=== PATIENT | female | born 1955 | race African-American/Black ===

== ENCOUNTER → 2016-11-20 | Outpatient (CLI) | payer MEDICARE, MEDICAID ==
[~2016-11-20] MED LIST: ALEVE220 M2 PO; AMBIEN10 M1 ORAL; AMBIEN10 MG PO; AMIODARONE HCL400 M1 ORAL; ASPIRIN81 M1 PO; ATENOLOL25 MG ORAL; ATIVAN1 MG ORAL; ATIVAN1 MG PO; AZITHROMYCIN250 MG PO; BACTRIM DS TAB1 EAC1 ORAL; BENTYL10 MG ORAL; BREO ELLIPTA 21 EACH IH; CAL MAG ZINC +1 EACH PO; CARAFATE1 G1 ORAL; CARDIZEM CD120 MG ORAL; CARDIZEM90 MG ORAL; CARTIA XT120 MG ORAL; CARTIA XT240 MG ORAL; CELLCEPT500 MG ORAL; CENTRUM COMPLE1 EAC1 PO; CIPRO500 MG PO; CREON DR 24,001 EACH PO; CREON DR 36,001 EACH PO; DALIRESP500 MCG PO; DEXILANT30 MG ORAL; DEXILANT30 MG PO; DEXILANT60 MG ORAL; DEXILANT60 MG PO; DILTIAZEM ER60 M1 ORAL; DIOVAN HCT 1601 EACH ORAL; DIOVAN HCT 1601 EACH PO; DIOVAN HCT 80MG1 TAB ORAL; DIOVAN160 MG ORAL; DOCUSIL100 M1 ORAL; ESCITALOPRAM OX20 MG ORAL; FERROUS SULFAT325 MG ORAL; FUROSEMIDE40 MG ORAL; GABAPENTIN300 MG ORAL; GABAPENTIN600 MG ORAL; HUMALOG100 UNIT/4 SUBQ; HYDROCHLOROTH12.5 MG ORAL; IMITREX50 MG ORAL; IMODIUM2 MG ORAL; IRON325 M2 PO; LEVAQUIN500 MG ORAL; LEXAPRO10 MG ORAL; LEXAPRO20 MG ORAL; LEXAPRO20 MG PO; LEXAPRO5 MG ORAL; LORAZEPAM1 MG ORAL; MAGNESIUM400 M1 PO; MEDROL4 MG ORAL; METHADONE HCL10 MG PO; METHADONE HCL5 MG PO; METOPROLOL SUC100 MG ORAL; MIRTAZAPINE15 MG ORAL; MYCOPHENOLATE500 MG PO; NEURONTIN300 MG ORAL; NORCO 5-325 TA1 EACH ORAL; NORVASC5 MG ORAL; NORVASC5 MG PO; PHENERGAN/CODE120 ML PO; PLAVIX75 MG ORAL; PREDNISONE10 MG ORAL; PREDNISONE10 MG PO; PREDNISONE20 MG ORAL; PROGRAF5 MG PO; PROTONIX40 M2 GT; PROTONIX40 M2 ORAL; REGLAN5 MG ORAL; RESTORIL30 MG ORAL; RESTORIL30 MG PO; RIBAVIRIN200 M1 ORAL; SIMETHICONE80 MG ORAL; SOVALDI400 MG PO; SPIRIVA INHALE1 PUFF INH; SPIRIVA18 MCG INH; SYMBICORT 1601 PUFFS INH; SYMBICORT 16010.2 G1 INH; SYMBICORT2 PUFF1 INH; THEO-DUR200 MG PO; THEOPHYLLINE A300 MG ORAL; TYLENOL325 MG ORAL; UNOBMED; VALGANCICLOVIR450 MG PO; XANAX0.5 MG ORAL; [UNRECOGNIZED DRUG - OTHER]; [UNRECOGNIZED DRUG - OTHER]; [UNRECOGNIZED DRUG - OTHER] PO; [UNRECOGNIZED DRUG - OTHER] PO; [UNRECOGNIZED DRUG - REMARK]; theophylline PO
[2016-11-20 15:47] VITALS: BP 127/86
--- NOTE | 2016-11-26 10:04 | General Progress Note ---
Assessment/Plan Problem List: (1) Hepatitis C ICD Codes: B19.20 - Hepatitis C SNOMED: 16027117 (2) Anemia ICD Codes: D64.9 - Anemia SNOMED: 830152804 (3) Diabetes ICD Codes: E11.9 - Diabetes SNOMED: 26955102 (4) HTN (hypertension) ICD Codes: I10 - HTN (hypertension) SNOMED: 60485309 (5) GERD (gastroesophageal reflux disease) ICD Codes: K21.9 - GERD (gastroesophageal reflux disease) SNOMED: 990833235 Assessment/Plan bentyl ppi breath test for SIBO Subjective ROS Limited/Unobtainable: Yes Allergies: Coded Allergies: PENICILLINS (Verified Allergy, Severe, Rash, 04/02/14) and swelling ASPIRIN (Unverified Allergy, Unknown, 04/02/14) was told it makes her pulmonary infections worse Subjective abd pain Objective General Appearance: alert EENT: normal ENT inspection Neck: supple Cardiovascular: normal rate Respiratory/Chest: decreased breath sounds Abdomen: normal bowel sounds, non tender, soft Extremities: non-tender DRU SCHROEDER Nov 26, 2016 10:04
== END | disposition home or self-care (01) ==
LOC: PAN 14:01
DX: B19.20 Unspecified viral hepatitis C without hepatic coma (principal); D64.9 Anemia, unspecified; E11.9 Type 2 diabetes mellitus without complications; I10 Essential (primary) hypertension; K21.9 Gastro-esophageal reflux disease without esophagitis; Z88.0 Allergy status to penicillin; Z88.6 Allergy status to analgesic agent
CPT/HCPCS: 99211

== ENCOUNTER → 2016-12-12 | Outpatient (CLI) | payer MEDICARE, MEDICAID ==
--- NOTE | 2016-12-12 15:57 | GI Progress Note ---
Assessment/Plan Problems: (1) Irritable bowel syndrome (IBS) ICD Codes: K58.9 - Irritable bowel syndrome without diarrhea SNOMED: 03403955, 23408873 (2) Small intestinal bacterial overgrowth ICD Codes: K63.89 - Other specified diseases of intestine SNOMED: 971880327 (3) Anxiety (4) GERD (gastroesophageal reflux disease) ICD Codes: K21.9 - GERD (gastroesophageal reflux disease) SNOMED: 729279760 (5) Diabetes ICD Codes: E11.9 - Diabetes SNOMED: 66605766 (6) Anemia ICD Codes: D64.9 - Anemia SNOMED: 517671563 (7) Epigastric abdominal pain ICD Codes: R10.13 - Epigastric abdominal pain SNOMED: 23208011 Status: stable Status Narrative Seen with Dr. Calloway. Assessment/Plan breath test positive for SIBO >> rx Xifaxan cont reglan cont dexilant RTC x 1 month Subjective Subjective epigastric pain/tenderness abdominal bloating min relief from dexilant Objective T 98.1 BP 132/84 P 66 93 RA denies weight loss General Appearance: no apparent distress, alert Cardiovascular: normal rate Respiratory/Chest: normal breath sounds, no respiratory distress Abdominal Exam: normal bowel sounds, non tender, soft, other - abdominal bloating Extremities: normal range of motion Objective Breath test positive Prograf increased to 7mg Vilma Stearns N.P. Dec 12, 2016 15:57
[2016-12-12 16:30] VITALS: BP 132/84
== END | disposition home or self-care (01) ==
LOC: PAN 14:51
DX: K58.9 Irritable bowel syndrome, unspecified (principal); K63.89 Other specified diseases of intestine; K21.9 Gastro-esophageal reflux disease without esophagitis; E11.9 Type 2 diabetes mellitus without complications; D64.9 Anemia, unspecified; R10.13 Epigastric pain
CPT/HCPCS: 99211

== ENCOUNTER → 2017-01-15 | Outpatient (CLI) | payer MEDICARE, MEDICAID ==
--- NOTE | 2017-01-15 13:14 | GI Progress Note ---
Assessment/Plan Problems: (1) Hepatitis C ICD Codes: B19.20 - Hepatitis C SNOMED: 55535744 (2) Small intestinal bacterial overgrowth ICD Codes: K63.89 - Other specified diseases of intestine SNOMED: 224312610 (3) GERD (gastroesophageal reflux disease) ICD Codes: K21.9 - GERD (gastroesophageal reflux disease) SNOMED: 008768109 (4) Epigastric abdominal pain ICD Codes: R10.13 - Epigastric abdominal pain SNOMED: 20644432 (5) Anemia ICD Codes: D64.9 - Anemia SNOMED: 258740977 Status: stable Status Narrative Seen with Dr. Calloway. Assessment/Plan breath test positive for SIBO >> rx Xifaxan refill Bentyl cont Dexilant cont reglan rx Nystatin for oral thrush recommend Align RTC x 1 month/prn (patient will contact) repeat colon x 1 year Subjective Subjective abdominal bloating greatly improved GERD >> on dexilant request refill for Bentyl c/o of oral thrush Objective T 98.3 BP 114/77 P 65 94 RA Weight (Pounds): 152 General Appearance: no apparent distress, alert Cardiovascular: normal rate Respiratory/Chest: normal breath sounds, no respiratory distress Abdominal Exam: normal bowel sounds, non tender, soft Extremities: normal range of motion Objective s/p SIBO tx Endoscopy Procedure Note Indication for Procedure: screening Procedures Performed: colonoscopy Operative Findings/Diagnosis: 5 polyps DRU CALLOWAY- Sep 29, 2015 10:09 Vilma Stearns N.P. Jan 15, 2017 13:14
[2017-01-15 13:53] VITALS: BP 114/77
== END | disposition home or self-care (01) ==
LOC: PAN 12:56
DX: B19.20 Unspecified viral hepatitis C without hepatic coma (principal); K63.89 Other specified diseases of intestine; K21.9 Gastro-esophageal reflux disease without esophagitis; R10.13 Epigastric pain; D64.9 Anemia, unspecified
CPT/HCPCS: 99211

== ENCOUNTER 2018-08-03 13:16 | Outpatient (CLI) | payer MEDICARE, MEDICAID ==
--- NOTE | 2018-08-03 13:57 | GI Initial Consult Note ---
History of Present Illness General Date patient seen: Aug 03, 2018 Time patient seen: 13:52 Referring physician: MISSY MILLS Reason for Consultation: SEVERE DIARRHEA Present Illness HPI The patient is a pleasant 60-year-old female with past medical history significant for Hep C, COPD on home oxygen therapy with multiple hospitalizations due to acute COPD exacerbations, abdominal pain, history of HTN , DM, dionna esophagitis, anxiety, depression, hypertension who presents to clinic with c/o of severe diarrhea. Associated symptoms include; LLQ abdomainl pain for approximately 2 weeks, abdominal bloating, and severe diarrhea. Pt has a history of GERD, currently taking Dexilant 60mg + Zantac twice daily. Her last colonoscopy was performed in 2014 and was noted with colonic polyps. Home Meds Reported Medications Ranitidine Hcl* (ZANTAC*) 150 Mg Tablet, 150 MG ORAL TWICE A DAY, TAB 08/03/18 Prednisone* (PREDNISONE*) 2.5 Mg Tablet, 7.5 MG ORAL DAILY, #10 TAB 0 Refills 08/03/18 Metoprolol Succinate* (METOPROLOL SUCCINATE*) 100 Mg Tab.er.24h, 100 MG ORAL DAILY, TAB 11/20/16 Multivitamin/Iron/Folic Acid (CENTRUM COMPLETE MULTIVIT TAB) 1 Each Tablet, 1 EACH PO DAILY, TAB 11/20/16 Magnesium Oxide (MAGNESIUM) 400 Mg Capsule, 400 MG PO BID, CAP 11/20/16 Ca Carb/Vit D3/Mag Ox/Zn Oxide (DC MAG ZINC + D TABLET) 1 Each Tablet, 1 EACH PO BID, TAB 11/20/16 Insulin Lispro (HUMALOG) 100 Unit/1 Ml Cartridge, 5 SUBQ BEFORE MEALS, #1 UNITS 0 Refills 10/08/16 Mycophenolate Mofetil (MYCOPHENOLATE MOFETIL) 500 Mg Tablet, 250 MG PO BID, TAB 10/08/16 Tacrolimus (PROGRAF) 5 Mg Capsule, 2 PO BID, CAP 09/11/16 Amlodipine Besylate (Norvasc) 5 Mg Tablet, 10 MG ORAL DAILY, TAB 09/11/16 Escitalopram Oxalate* (LEXAPRO*) 20 Mg Tablet, 20 MG ORAL DAILY, TAB 01/23/16 Zolpidem Tartrate* (AMBIEN*) 10 Mg Tablet, 10 MG ORAL HS PRN for Insomnia, TAB 05/11/15 Dexlansoprazole (Dexilant) 60 Mg Cap., 60 MG ORAL DAILY, CAP 07/20/14 Discontinued Reported Medications Dicyclomine Hcl* (BENTYL*) 10 Mg Capsule, 20 MG ORAL PRN, CAP 11/20/16 Metoclopramide Hcl* (REGLAN*) 5 Mg Tablet, 10 MG ORAL BID, TAB 11/20/16 Valganciclovir HCl (Valganciclovir HCl) 450 Mg Tablet, 450 MG PO DAILY, TAB 11/20/16 Trimethoprim/Sulfamethoxazole 160/800* (BACTRIM DS TABLET*) 1 Each Tablet, 1 TAB ORAL 3XW, TAB 11/20/16 Prednisone* (PREDNISONE*) 10 Mg Tablet, 10 MG ORAL DAILY, #10 TAB 0 Refills 11/20/16 Loperamide HCl (Loperamide) 2 Mg Cap, 2 MG ORAL PRN, #20 CAP 0 Refills 01/23/16 Gabapentin* (GABAPENTIN*) 600 Mg Tablet, 600 MG ORAL TID, TAB 01/23/16 Tiotropium (Spiriva Inhaler) 1 Puff Puffs, 1 PUFF INH ONCE 07/28/12 Med list reviewed/reconciled: Yes Allergies: Coded Allergies: PENICILLINS (Verified Allergy, Severe, Rash, 04/02/14) and swelling ASPIRIN (Unverified Allergy, Unknown, 04/02/14) was told it makes her pulmonary infections worse Patient History History Provided By: Patient, Medical Record [facility] Narrative PAST MEDICAL HISTORY: Significant for: 1. Chronic obstructive pulmonary disease with emphysema. 2. Hypertension. 3. Atrial fibrillation. 4. Gastroesophageal reflux disease. 5. Hepatitis C, status post interferon treatment ending in December of 2014. 6. Aortic insufficiency. 7. Hiatal hernia. 8. Umbilical hernia. 9. Peripheral neuropathy of the right foot. PAST SURGICAL HISTORY: Significant for vaginal hysterectomy. Lung Transplant 2016 Social History: Denies: smoking, alcohol use, drug use, other Review of Systems All Other Systems: negative except mentioned in HPI Physical Exam T 97.7 BP 93/56 P 55 92 RA WT 155 lbs Sp02 EP Interpretation: reviewed, normal General Appearance: well appearing, no apparent distress, alert Head: normocephalic EENT: PERRL/EOMI, normal ENT inspection Neck: supple Respiratory: normal breath sounds, no respiratory distress Cardiovascular: normal rate Gastrointestinal: normal inspection, non tender, soft, normal bowel sounds, non -distended Rectal: deferred Genitourinary: no CVA tenderness Musculoskeletal: normal inspection, back normal Neurologic: normal inspection, alert, oriented x3, responsive Psychiatric: normal inspection, judgement/insight normal, memory normal Skin: normal inspection, normal color, no rash, warm/dry, palpation normal, well hydrated Lymphatic: normal inspection, no adenopathy GI: Plan Problems: (1) Diarrhea (2) Irritable bowel syndrome (IBS) (3) Abdominal distention (4) Abdominal pain (5) GERD (gastroesophageal reflux disease) (6) Epigastric abdominal pain Plan Colonoscopy scheduled 10/23/2018. - CLD & (Nulytely/Suprep/Movi-Prep) prep instructions given and acknowledged by patient. - NPO @ MN day prior procedure explained. Rx Xifaxan for SIBO Trial Viberzi RTC x1 month The patient was seen and examined at bedside and all new and available data was reviewed in the patients chart. I agree with the above findings, impression and plan. (Patient seen earlier today. Signature stamp does not reflect patient encounter time.). - MD Jinny DasilvaTucson Va Medical CenterSantiago UTILITY LOCATOR Aug 03, 2018 13:57
[2018-08-03] MEDS ORDERED: PREDNISONE2.5 MG ORAL (13:59)
[2018-08-03] MEDS ORDERED: ZANTAC150 MG ORAL (13:59)
[2018-08-03 14:00] VITALS: BP 93/56
== END 2018-08-03 13:46 | disposition home or self-care (01) ==
LOC: PAN 13:16
DX: K58.0 Irritable bowel syndrome with diarrhea (principal); R14.0 Abdominal distension (gaseous); R10.32 Left lower quadrant pain; K21.9 Gastro-esophageal reflux disease without esophagitis; J44.1 Chronic obstructive pulmonary disease with (acute) exacerbation; I10 Essential (primary) hypertension; E11.9 Type 2 diabetes mellitus without complications; B37.81 Candidal esophagitis; F41.9 Anxiety disorder, unspecified; F32.9 Major depressive disorder, single episode, unspecified; K63.5 Polyp of colon; I48.91 Unspecified atrial fibrillation; B19.20 Unspecified viral hepatitis C without hepatic coma; G62.9 Polyneuropathy, unspecified; Z88.6 Allergy status to analgesic agent; Z88.0 Allergy status to penicillin
CPT/HCPCS: 99213

== ENCOUNTER 2018-10-23 10:04 | Day surgery (SDC) | payer MEDICARE, MEDICAID ==
[2018-10-23] VITALS (8 sets, daily range): BP systolic 136–145; BP diastolic 87–110
[~2018-10-23] VITALS: Ht 157.5 cm; Wt 70.3 kg
[~2018-10-23 10:04] MED LIST changes: +PREDNISONE2.5 MG ORAL; +ZANTAC150 MG ORAL
--- NOTE | 2018-10-23 12:37 | Pre-Procedure Note/Attestation ---
Pre-Procedure Note/Attestation Complete Prior to Procedure Planned Procedure: not applicable Procedure Narrative: esophagogastroduodenoscopy and colonoscopy Indications for Procedure Pre-Operative Diagnosis: screening colonoscopy h/o colon polyps GERD Attestation I attest that I discussed the nature of the procedure; its benefits; risks and complications; and alternatives (and the risks and benefits of such alternatives ), prior to the procedure, with the patient (or the patient's legal data entry representative). I attest that, if there was a reasonable possibility of needing a blood transfusion, the patient (or the patient's legal data entry representative) was given the [facility] Health Services standardized written summary, pursuant to the Sh[place] Blood Safety Act ([place] Health and Safety Code # 1645, as amended). I attest that I re-evaluated the patient just prior to the surgery and that there has been no change in the patient's H&P, except as documented below: Pelon Calloway MD Oct 23, 2018 12:37
--- NOTE | 2018-10-23 12:37 | Short Stay Surgery H&P ---
History of Present Illness History of Present Illness Chief Complaint see recent office note HPI Lydia Gee is a 63 year old female who was admitted on for Gerd,Abdominal Pain Patient History Allergies: Coded Allergies: PENICILLINS (Verified Allergy, Severe, Rash, 04/02/14) and swelling ASPIRIN (Unverified Allergy, Unknown, 04/02/14) was told it makes her pulmonary infections worse Medication History Scheduled Amlodipine Besylate (Norvasc), 10 MG ORAL DAILY, (Reported) Ca Carb/Vit D3/Mag Ox/Zn Oxide (Gustavo Mag Zinc + D Tablet), 1 EACH PO BID, ( Reported) Dexlansoprazole (Dexilant), 60 MG ORAL DAILY, (Reported) Escitalopram Oxalate* (Lexapro*), 20 MG ORAL DAILY, (Reported) Magnesium Oxide (Magnesium), 400 MG PO BID, (Reported) Metoprolol Succinate* (Metoprolol Succinate*), 100 MG ORAL DAILY, (Reported) Multivitamin/Iron/Folic Acid (Centrum Complete Multivit Tab), 1 EACH PO DAILY, ( Reported) Prednisone* (Prednisone*), 7.5 MG ORAL DAILY, (Reported) Ranitidine Hcl* (Zantac*), 150 MG ORAL TWICE A DAY, (Reported) Tacrolimus (Prograf), 2 PO BID, (Reported) Discontinued Medications Insulin Lispro (Humalog), 5 SUBQ BEFORE MEALS, (Reported) Discontinued Reason: Pt stopped taking med Mycophenolate Mofetil (Mycophenolate Mofetil), 250 MG PO BID, (Reported) Discontinued Reason: Pt stopped taking med Zolpidem Tartrate* (Ambien*), 10 MG ORAL HS PRN for Insomnia, (Reported) Discontinued Reason: Pt stopped taking med Physical Exam Vital Signs Last Vital Signs Date Time Temp Pulse Resp B/P (MAP) Pulse Ox O2 Delivery O2 Flow Rate FiO2 10/23/18 11:41 Room Air 10/23/18 11:37 97.7 85 18 141/98 98 Plan Attestation Are the patient's medical conditions optimized for surgery? Pelon Calloway MD Oct 23, 2018 12:37
[2018-10-23] MEDS ORDERED: Propofol 200mg/20ml IV ONE (12:45)
[2018-10-23] MEDS ORDERED: Esmolol 100mg/10ml Inj ONE (12:45)
[2018-10-23] MEDS ORDERED: Midazolam 2mg/2ml Inj ONE ×2 (12:45→12:47)
[2018-10-23] MEDS ORDERED: Ketamine 500mg Inj ONE ×2 (12:45→12:48)
[2018-10-23 12:54] LABS: BASOPHILS % (AUTO) 2.8 % (0.0-2.0); EOSINOPHILS % (AUTO) 1.3 % (0.0-3.0); HEMATOCRIT 43.4 % (37.0-47.0); HEMOGLOBIN 13.5 G/DL (12.0-16.0); LYMPHOCYTES % (AUTO) 22.5 % (20.0-45.0); MEAN CORPUSCULAR VOLUME 87 FL (80-99); MONOCYTES % (AUTO) 7.7 % (1.0-10.0); NEUTROPHILS % (AUTO) 65.7 % (45.0-75.0); PLATELET COUNT 196 K/UL (150-450); RED BLOOD COUNT 4.97 M/UL (4.20-5.40); RED CELL DISTRIBUTION WIDTH 13.6 % (11.6-14.8); WHITE BLOOD COUNT 6.3 K/UL (4.8-10.8)
[2018-10-23 13:06] LABS: ANION GAP 10 mmol/L (5-15); BLOOD UREA NITROGEN 23 mg/dL (7-18); CALCIUM 10.3 MG/DL (8.5-10.1); CARBON DIOXIDE 28 MMOL/L (21-32); CHLORIDE 105 MMOL/L (98-107); CREATININE 1.4 MG/DL (0.55-1.30); POTASSIUM 4.4 MMOL/L (3.5-5.1); SODIUM 143 MMOL/L (136-145)
[2018-10-23 13:08] LABS: INR 1.1 (0.9-1.1)
--- NOTE | 2018-10-23 13:53 | Anethesia Preoperative Eval ---
Anesthesia Pre-op PMH/ROS General Date of Evaluation: Oct 23, 2018 Time of Evaluation: 12:45 Anesthesiologist: Gretel Catherine CRNA ASA Score: ASA 4 Mallampati Score Class I : Soft palate, uvula, fauces, pillars visible Class II: Soft palate, uvula, fauces visible Class III: Soft palate, base of uvula visible Class IV: Only hard plate visible Mallampati Classification: Class II Surgeon: Brodie Diagnosis: GERD, abd pain Surgical Procedure: EGD, colonoscopy Anesthesia History: none Social History: smoking Family History: no anesthesia problems Allergies: Coded Allergies: PENICILLINS (Verified Allergy, Severe, Rash, 04/02/14) and swelling ASPIRIN (Unverified Allergy, Unknown, 04/02/14) was told it makes her pulmonary infections worse Medications: see eMAR Patient NPO?: Yes NPO Date: Oct 23, 2018 NPO Time: 00:00 Past Medical History Cardiovascular: Reports: HTN, CAD, valve dz; Denies: [place], arrhythmia, other Pulmonary: Reports: COPD, other - s/p lung transplant; Denies: asthma, AMBER Gastrointestinal/Genitourinary: Reports: GERD, other; Denies: CRI, ESRD Neurologic/Psychiatric: Denies: dementia, CVA, depression/anxiety, TIA, other Endocrine: Reports: DM, steroids; Denies: hypothyroidism, other HEENT: Denies: cataract (L), cataract (R), glaucoma, KNIK (L), KNIK (R), other Hematology/Immune: Denies: anemia, DVT, bleeding disorder, other Musculoskeletal/Integumentary: Denies: OA, RA, DJD, DDD, edema, other Other: obesity PMH Narrative: see above PSxH Narrative: see H & P Anesthesia Pre-op Phys. Exam Physician Exam Last Vital Signs Date Time Temp Pulse Resp B/P (MAP) Pulse Ox O2 Delivery O2 Flow Rate FiO2 10/23/18 13:40 91 16 140/107 100 Nasal Cannula 3 10/23/18 13:36 98.9 Cardiovascular: RRR Respiratory: CTA Gastrointestinal: S/NT/ND Airway Exam Mallampati Score: Class II MO: full ROM: full Teeth: intact Dentures: no upper, no lower Anesthesia Pre-op A/P Labs Hematology Test 10/23/18 12:35 White Blood Count 6.3 K/UL (4.8-10.8) Red Blood Count 4.97 M/UL (4.20-5.40) Hemoglobin 13.5 G/DL (12.0-16.0) Hematocrit 43.4 % (37.0-47.0) Mean Corpuscular Volume 87 FL (80-99) Mean Corpuscular Hemoglobin 27.2 PG (27.0-31.0) Mean Corpuscular Hemoglobin Concent 31.2 G/DL (32.0-36.0) L Red Cell Distribution Width 13.6 % (11.6-14.8) Platelet Count 196 K/UL (150-450) Mean Platelet Volume 8.4 FL (6.5-10.1) Neutrophils (%) (Auto) 65.7 % (45.0-75.0) Lymphocytes (%) (Auto) 22.5 % (20.0-45.0) Monocytes (%) (Auto) 7.7 % (1.0-10.0) Eosinophils (%) (Auto) 1.3 % (0.0-3.0) Basophils (%) (Auto) 2.8 % (0.0-2.0) H Coagulation Test 10/23/18 12:35 Prothrombin Time Pending Prothromb Time International Ratio Pending Activated Partial Thromboplast Time Pending Chemistry Test 10/23/18 12:35 Sodium Level 143 MMOL/L (136-145) Potassium Level 4.4 MMOL/L (3.5-5.1) Chloride Level 105 MMOL/L (98-107) Carbon Dioxide Level 28 MMOL/L (21-32) Anion Gap 10 mmol/L (5-15) Blood Urea Nitrogen 23 mg/dL (7-18) H Creatinine 1.4 MG/DL (0.55-1.30) H Estimat Glomerular Filtration Rate 45.8 mL/min (>60) Glucose Level 145 MG/DL (74-106) H Calcium Level 10.3 MG/DL (8.5-10.1) H Studies Pre-op Studies: EKG - NSR Risk Assessment & Plan Status Change Before Surgery: No Pre-Antibiotics Given Within 1 Hr of Incision: Gretel Carey CRNA Oct 23, 2018 13:53
--- NOTE | 2018-10-23 13:55 | Immediate Post-Op Evaluation ---
Immediate Post-Op Evalulation Immediate Post-Op Evalulation Procedure: EGD, colonoscopy, polypectomy Date of Evaluation: Oct 23, 2018 Time of Evaluation: 13:36 IV Fluids: 0.9 NS 50 ml Blood Pressure Systolic: 145 Blood Pressure Diastolic: 110 Pulse Rate: 87 Respiratory Rate: 24 O2 Sat by Pulse Oximetry: 100 Temperature (Fahrenheit): 98.2 Pain Score (1-10): 0 Nausea: No Vomiting: No Complications none Patient Status: awake, reacts Hydration Status: adequate Given Within 1 Hr of Incision: Gretel Carey CRNA Oct 23, 2018 13:55
--- NOTE | 2018-10-23 15:08 | 48 Hour Post Anesthesia Eval ---
Post Anesthesia Evaluation Procedure: EGD, colonoscopy, polypectomy Date of Evaluation: Oct 23, 2018 Time of Evaluation: 15:06 Blood Pressure Systolic: 144 0: 89 Pulse Rate: 78 Respiratory Rate: 20 Temperature (Fahrenheit): 98.4 O2 Sat by Pulse Oximetry: 100 Airway: patent Nausea: No Vomiting: No Pain Intensity: 0 Hydration Status: adequate Cardiopulmonary Status: stable Mental Status/LOC: patient returned to baseline Follow-up Care/Observations: per GI Post-Anesthesia Complications: none Follow-up care needed: ready to discharge Gretel Catherine CRNA Oct 23, 2018 15:08
--- NOTE | 2018-10-23 15:52 | Cardiology Report ---
APPROVED REPORT EKG Measurement Heart [id number] PA 134P68 [id number] Normal sinus rhythm T wave abnormality, consider inferior ischemia T wave abnormality, consider anterolateral ischemia Abnormal ECG
--- NOTE | 2018-10-23 20:45 | Procedure Note ---
DATE OF PROCEDURE: 10/23/2018 NOTE: INCOMPLETE DICTATION SURGEON: Pelon Calloway M.D. ANESTHESIOLOGIST: Gretel WALKER. PROCEDURE: Upper endoscopy with brush biopsy and colonoscopy with biopsy. ANESTHESIA: Per Gretel WALKER. INSTRUMENT: Olympus adult flexible upper endoscope and colonoscope. The procedure, risks, benefits, and possible consequences, including hemorrhage, aspiration, perforation and infection, and alternative treatments, were explained to the patient/legal guardian by Dr. Pelon Calloway and the patient/legal guardian understood and accepted these risks. DESCRIPTION OF PROCEDURE: Pelon Calloway M.D. DR: Prudence JOB#: [id number] CC:
--- NOTE | 2018-10-23 21:00 | Procedure Note ---
DATE OF PROCEDURE: 10/23/2018 SURGEON: Pelon Calloway M.D. ANESTHESIOLOGIST: Gretel WALKER. PROCEDURE: Upper endoscopy with brush biopsy and colonoscopy with biopsy. INSTRUMENT: Olympus adult flexible colonoscope and upper scope. INDICATION: History of colonic polyp, chronic GERD, and abdominal pain. The procedure, risks, benefits, and possible consequences, including hemorrhage, aspiration, perforation and infection, and alternative treatments, were explained to the patient/legal guardian by Dr. Pelon Calloway and the patient/legal guardian understood and accepted these risks. DESCRIPTION OF PROCEDURE: After informed consent was obtained and the patient was adequately sedated, Olympus upper endoscope was advanced from the mouth into the second portion of duodenum and retroflexion was performed in the stomach. The patient has diffuse severe Yuliet esophagitis with severe white plaques especially in the proximal esophagus, status post brush biopsy. In the stomach, there was diffuse gastritis. No evidence of any ulceration. No evidence of any active bleeding. The patient also had evidence of a small hiatal hernia. At this time, the upper endoscope was retrieved. The patient was turned over for colonoscopy. First, rectal exam was performed which was positive for internal hemorrhoids. Then, the scope was advanced from the rectum into the cecum documented by the appendix orifice, ileocecal valve, and right upper quadrant palpation. Quality of prep was fair. The patient had semi-solid stool throughout the colon. I would say about 25% to 30% of the colonic mucosa was not fully examined. The patient had some scattered diverticulosis. One rectal polyp, 4 mm, was removed with cold biopsy forceps technique. Retroflexion in the rectum showed evidence of small nonbleeding internal hemorrhoids. SUMMARY OF FINDINGS: 1. Possible Yuliet esophagitis. 2. Gastritis. 3. Small hiatal hernia. 4. Diverticulosis. 5. Poor prep. 6. One rectal polyp, removed. 7. Internal hemorrhoids. RECOMMENDATIONS: Follow up biopsy results and treat accordingly. We will start the patient on Diflucan for 10 days. The patient would need a repeat colonoscopy in three years given this poor prep. Pelon Calloway M.D. DR: Prudence JOB#: [id number] CC:
== END 2018-10-23 14:45 | disposition home or self-care (01) ==
LOC: GAS 10:04
DX: K29.70 Gastritis, unspecified, without bleeding (principal); K44.9 Diaphragmatic hernia without obstruction or gangrene; B37.81 Candidal esophagitis; K21.9 Gastro-esophageal reflux disease without esophagitis; K62.1 Rectal polyp; K64.8 Other hemorrhoids; K57.30 Diverticulosis of large intestine without perforation or abscess without bleeding; I10 Essential (primary) hypertension; I25.10 Atherosclerotic heart disease of native coronary artery without angina pectoris; J44.9 Chronic obstructive pulmonary disease, unspecified; E11.9 Type 2 diabetes mellitus without complications; Z94.2 Lung transplant status; Z79.4 Long term (current) use of insulin; Z88.6 Allergy status to analgesic agent; Z88.0 Allergy status to penicillin
CPT/HCPCS: 36415; 43239; 45380; 80048; 85025; 85610; 85730; 93005; J2250; J2704; J3490; 94003; 94150

== ENCOUNTER 2018-12-03 14:25 | Outpatient (CLI) | payer MEDICARE, MEDICAID ==
[2018-12-03 14:00] VITALS: BP 121/85
--- NOTE | 2018-12-03 15:44 | GI Progress Note ---
Assessment/Plan Problems: (1) History of lung transplant ICD Codes: Z94.2 - Lung transplant status SNOMED: 94992703, 386591190 (2) Esophageal candidiasis ICD Codes: B37.81 - Candidal esophagitis SNOMED: 66196250 (3) Epigastric abdominal pain ICD Codes: R10.13 - Epigastric abdominal pain SNOMED: 26695537 Status: stable Status Narrative Seen with Dr. Calloway. Assessment/Plan SUMMARY OF FINDINGS reviewed with patient: 1. Possible Yuliet esophagitis. 2. Gastritis. 3. Small hiatal hernia. 4. Diverticulosis. 5. Poor prep. 6. One rectal polyp, removed. 7. Internal hemorrhoids. RECOMMENDATIONS: Follow up biopsy results and treat accordingly. >> Positive for Yuliet Patient unable to take Diflucan given history of lung transplant We will give trial of nystatin RTC x 1 month The patient would need a repeat colonoscopy in three years given this poor prep. The patient was seen and examined at bedside and all new and available data was reviewed in the patients chart. I agree with the above findings, impression and plan. (Patient seen earlier today. Signature stamp does not reflect patient encounter time.). - Pelon Calloway MD Subjective Gastrointestinal/Abdominal: Reports: no symptoms Objective Temperature 98.7 Blood pressure 120/85 Pulse 79 91% room air Denies any weight loss General Appearance: WD/WN, no apparent distress, alert Cardiovascular: normal rate Respiratory/Chest: normal breath sounds, no respiratory distress Abdominal Exam: normal bowel sounds, non tender, soft Extremities: normal range of motion, non-tender Cheryl Stearns NP Dec 03, 2018 15:44
== END 2018-12-03 14:55 | disposition home or self-care (01) ==
LOC: PAN 14:25
DX: B37.81 Candidal esophagitis (principal); R10.13 Epigastric pain; Z94.2 Lung transplant status; K29.70 Gastritis, unspecified, without bleeding; K44.9 Diaphragmatic hernia without obstruction or gangrene; K57.90 Diverticulosis of intestine, part unspecified, without perforation or abscess without bleeding; K64.8 Other hemorrhoids
CPT/HCPCS: 99212

== ENCOUNTER 2019-10-18 13:43 | Outpatient (CLI) | payer MEDICARE, MEDICAID ==
[2019-10-18 14:00] VITALS: BP 107/89
--- NOTE | 2019-10-18 15:19 | General Progress Note ---
Assessment/Plan Assessment/Plan: 1) History of lung transplant ICD Codes: Z94.2 - Lung transplant status SNOMED: 04124659, 727389556 (2) Esophageal candidiasis ICD Codes: B37.81 - Candidal esophagitis SNOMED: 22120617 (3) Epigastric abdominal pain ICD Codes: R10.13 - Epigastric abdominal pain SNOMED: 96940769 Status: stable Status Narrative Seen with Dr. Calloway. Assessment/Plan SUMMARY OF FINDINGS reviewed with patient: 1. Possible Yuliet esophagitis. 2. Gastritis. 3. Small hiatal hernia. 4. Diverticulosis. 5. Poor prep. 6. One rectal polyp, removed. 7. Internal hemorrhoids. RECOMMENDATIONS: needs EGD for fu yuliet esophagitis plan next week Subjective ROS Limited/Unobtainable: Yes Allergies: Coded Allergies: PENICILLINS (Verified Allergy, Severe, Rash, 04/02/14) and swelling ASPIRIN (Unverified Allergy, Unknown, 04/02/14) was told it makes her pulmonary infections worse Objective General Appearance: alert EENT: normal ENT inspection Neck: supple Cardiovascular: normal rate Respiratory/Chest: decreased breath sounds Abdomen: normal bowel sounds, non tender, soft Extremities: non-tender Pelon Calloway MD Oct 18, 2019 15:19
[2019-10-19] MEDS ORDERED: BACLOFEN10 MG ORAL (08:16)
[2019-10-19] MEDS ORDERED: TRULICITY0.75 MG/0. SQ (08:16)
== END 2019-10-18 16:00 | disposition home or self-care (01) ==
LOC: PAN 13:43
DX: R10.13 Epigastric pain (principal); B37.81 Candidal esophagitis; Z94.2 Lung transplant status; Z86.010 Personal history of colon polyps; K57.90 Diverticulosis of intestine, part unspecified, without perforation or abscess without bleeding; K29.70 Gastritis, unspecified, without bleeding; K44.9 Diaphragmatic hernia without obstruction or gangrene; K64.8 Other hemorrhoids; Z88.6 Allergy status to analgesic agent; Z88.0 Allergy status to penicillin

== ENCOUNTER 2019-10-22 07:06 | Day surgery (SDC) | payer MEDICARE, MEDICAID ==
[~2019-10-22] VITALS: Ht 157.5 cm; Wt 73.5 kg
[2019-10-22] VITALS (9 sets, daily range): BP systolic 116–138; BP diastolic 78–99
[~2019-10-22 07:06] MED LIST changes: +BACLOFEN10 MG ORAL; +TRULICITY0.75 MG/0. SQ
[2019-10-22 08:47] LABS: BASOPHILS % (AUTO) 1.4 % (0.0-2.0); EOSINOPHILS % (AUTO) 2.6 % (0.0-3.0); HEMATOCRIT 43.8 % (37.0-47.0); HEMOGLOBIN 13.6 G/DL (12.0-16.0); MEAN CORPUSCULAR VOLUME 88 FL (80-99); MONOCYTES % (AUTO) 9.8 % (1.0-10.0); NEUTROPHILS % (AUTO) 53.3 % (45.0-75.0); PLATELET COUNT 176 K/UL (150-450); RED BLOOD COUNT 4.96 M/UL (4.20-5.40); RED CELL DISTRIBUTION WIDTH 13.3 % (11.6-14.8); WHITE BLOOD COUNT 6.5 K/UL (4.8-10.8)
--- NOTE | 2019-10-22 08:57 | Pre-Procedure Note/Attestation ---
Pre-Procedure Note/Attestation Complete Prior to Procedure Planned Procedure: not applicable Procedure Narrative: egd Indications for Procedure Pre-Operative Diagnosis: GERD Attestation I attest that I discussed the nature of the procedure; its benefits; risks and complications; and alternatives (and the risks and benefits of such alternatives ), prior to the procedure, with the patient (or the patient's legal account services representative). I attest that, if there was a reasonable possibility of needing a blood transfusion, the patient (or the patient's legal account services representative) was given the [facility] Health Services standardized written summary, pursuant to the [place] Blood Safety Act ([place] Health and Safety Code # 1645, as amended). I attest that I re-evaluated the patient just prior to the surgery and that there has been no change in the patient's H&P, except as documented below: Pelon Calloway MD Oct 22, 2019 08:57
--- NOTE | 2019-10-22 08:57 | Short Stay Surgery H&P ---
History of Present Illness History of Present Illness Chief Complaint see recent office note HPI Lydia Gee is a 64 year old female who was admitted on for Abdominal Pain, Gerd Patient History Allergies: Coded Allergies: PENICILLINS (Verified Allergy, Severe, Rash, 04/02/14) and swelling ASPIRIN (Unverified Allergy, Unknown, 04/02/14) was told it makes her pulmonary infections worse Medication History Scheduled Amlodipine Besylate (Norvasc), 10 MG ORAL DAILY, (Reported) Baclofen* (Baclofen*), 10 MG ORAL THREE TIMES A DAY, (Reported) Ca Carb/Vit D3/Mag Ox/Zn Oxide (Gustavo Mag Zinc + D Tablet), 1 EACH PO BID, ( Reported) Dexlansoprazole (Dexilant), 60 MG ORAL DAILY, (Reported) Escitalopram Oxalate* (Lexapro*), 20 MG ORAL DAILY, (Reported) Magnesium Oxide (Magnesium), 400 MG PO BID, (Reported) Prednisone* (Prednisone*), 7.5 MG ORAL DAILY, (Reported) Ranitidine Hcl* (Zantac*), 150 MG ORAL TWICE A DAY, (Reported) Tacrolimus (Prograf), 2 PO BID, (Reported) Discontinued Medications Dulaglutide (Trulicity), 0.75 MG SQ, (Reported) Discontinued Reason: Pt stopped taking med Metoprolol Succinate* (Metoprolol Succinate*), 100 MG ORAL DAILY, (Reported) Discontinued Reason: Pt stopped taking med Multivitamin/Iron/Folic Acid (Centrum Complete Multivit Tab), 1 EACH PO DAILY, ( Reported) Discontinued Reason: Pt stopped taking med Physical Exam Vital Signs Last Vital Signs Date Time Temp Pulse Resp B/P (MAP) Pulse Ox O2 Delivery O2 Flow Rate FiO2 10/22/19 07:53 Room Air 10/22/19 07:39 97.8 88 18 128/85 96 Labs Laboratory Tests Test 10/22/19 08:20 White Blood Count 6.5 K/UL (4.8-10.8) Red Blood Count 4.96 M/UL (4.20-5.40) Hemoglobin 13.6 G/DL (12.0-16.0) Hematocrit 43.8 % (37.0-47.0) Mean Corpuscular Volume 88 FL (80-99) Mean Corpuscular Hemoglobin 27.5 PG (27.0-31.0) Mean Corpuscular Hemoglobin Concent 31.0 G/DL (32.0-36.0) L Red Cell Distribution Width 13.3 % (11.6-14.8) Platelet Count 176 K/UL (150-450) Mean Platelet Volume 7.6 FL (6.5-10.1) Neutrophils (%) (Auto) 53.3 % (45.0-75.0) Lymphocytes (%) (Auto) 33.0 % (20.0-45.0) Monocytes (%) (Auto) 9.8 % (1.0-10.0) Eosinophils (%) (Auto) 2.6 % (0.0-3.0) Basophils (%) (Auto) 1.4 % (0.0-2.0) Sodium Level Pending Potassium Level Pending Chloride Level Pending Carbon Dioxide Level Pending Blood Urea Nitrogen Pending Creatinine Pending Estimat Glomerular Filtration Rate Pending Glucose Level Pending Calcium Level Pending Total Bilirubin Pending Aspartate Amino Transf (AST/SGOT) Pending Alanine Aminotransferase (ALT/SGPT) Pending Alkaline Phosphatase Pending Total Protein Pending Albumin Pending Globulin Pending Plan Attestation Are the patient's medical conditions optimized for surgery? Pelon Calloway MD Oct 22, 2019 08:57
[2019-10-22] MEDS ORDERED: Lidocaine 1% MPF 10mg/ml 5ml ONE (09:00)
[2019-10-22] MEDS ORDERED: Propofol 200mg/20ml IV ONE (09:00)
[2019-10-22] MEDS ORDERED: LR 1000ml ONE (09:00)
[2019-10-22 09:05] LABS: ANION GAP 7 mmol/L (5-15); BLOOD UREA NITROGEN 40 mg/dL (7-18); CALCIUM 9.3 MG/DL (8.5-10.1); CARBON DIOXIDE 30 MMOL/L (21-32); CHLORIDE 102 MMOL/L (98-107); CREATININE 1.9 MG/DL (0.55-1.30); POTASSIUM 4.5 MMOL/L (3.5-5.1); SODIUM 138 MMOL/L (136-145)
[2019-10-22 09:07] LABS: ALANINE AMINOTRANSFERASE 22 U/L (12-78); ALBUMIN 4.1 G/DL (3.4-5.0); ALBUMIN/GLOBULIN RATIO 1.2 (1.0-2.7); ALKALINE PHOSPHATASE 39 U/L (46-116); ASPARTATE AMINO TRANSFERASE 15 U/L (15-37); BILIRUBIN,TOTAL 0.5 MG/DL (0.2-1.0)
--- NOTE | 2019-10-22 09:08 | Endoscopy Procedure Note ---
Endoscopy Procedure Note General Indication for Procedure: GERD Procedures Performed: EGD Operative Findings/Diagnosis: esoph ulcer Specimen: yes Pt Tolerated Procedure Well: Yes Estimated Blood Loss: none Anesthesia Anesthesiologist: meño Anesthesia: MAC Inserted Devices Implant(s) used?: No GI Core Measures 50 yrs or older w/o bx or poly: Not Applicable 10yrs. F/U recommended: Not Applicable Pelon Calloway MD Oct 22, 2019 09:08
--- NOTE | 2019-10-22 09:48 | Anethesia Preoperative Eval ---
Anesthesia Pre-op PMH/ROS General Date of Evaluation: Oct 22, 2019 Time of Evaluation: 08:47 Anesthesiologist: leonila ASA Score: ASA 3 Mallampati Score Class I : Soft palate, uvula, fauces, pillars visible Class II: Soft palate, uvula, fauces visible Class III: Soft palate, base of uvula visible Class IV: Only hard plate visible Mallampati Classification: Class II Surgeon: jose Diagnosis: GERD Surgical Procedure: EGD with Bx Anesthesia History: none Family History: no anesthesia problems Allergies: Coded Allergies: PENICILLINS (Verified Allergy, Severe, Rash, 04/02/14) and swelling ASPIRIN (Unverified Allergy, Unknown, 04/02/14) was told it makes her pulmonary infections worse Medications: see eMAR Patient NPO?: Yes NPO Date: Oct 22, 2019 NPO Time: 00:01 Past Medical History Cardiovascular: Reports: HTN, CAD, arrhythmia, other - CHF Pulmonary: Reports: COPD, other - lung transplant 2 years ago Gastrointestinal/Genitourinary: Reports: GERD Neurologic/Psychiatric: Denies: dementia, CVA, depression/anxiety, TIA, other Endocrine: Denies: DM, hypothyroidism, steroids, other HEENT: Denies: cataract (L), cataract (R), glaucoma, [place] (L), [place] (R), other Hematology/Immune: Denies: anemia, DVT, bleeding disorder, other Musculoskeletal/Integumentary: Denies: OA, RA, DJD, DDD, edema, other Other: obesity PSxH Narrative: lung transplant 2 years ago; takes steriod po; no changes in health Anesthesia Pre-op Phys. Exam Physician Exam Last Vital Signs Date Time Temp Pulse Resp B/P (MAP) Pulse Ox O2 Delivery O2 Flow Rate FiO2 10/22/19 09:40 97.1 66 22 126/79 97 Room Air 10/22/19 09:15 3 Constitutional: NAD Neurologic: CN 2-12 intact Cardiovascular: RRR Respiratory: other - right lungs clear; none on left side Gastrointestinal: S/NT/ND Airway Exam Mallampati Classification 3 Mallampati Score: Class II MO: full ROM: full Dentures: upper Anesthesia Pre-op A/P Labs Hematology Test 10/22/19 08:20 White Blood Count 6.5 K/UL (4.8-10.8) Red Blood Count 4.96 M/UL (4.20-5.40) Hemoglobin 13.6 G/DL (12.0-16.0) Hematocrit 43.8 % (37.0-47.0) Mean Corpuscular Volume 88 FL (80-99) Mean Corpuscular Hemoglobin 27.5 PG (27.0-31.0) Mean Corpuscular Hemoglobin Concent 31.0 G/DL (32.0-36.0) L Red Cell Distribution Width 13.3 % (11.6-14.8) Platelet Count 176 K/UL (150-450) Mean Platelet Volume 7.6 FL (6.5-10.1) Neutrophils (%) (Auto) 53.3 % (45.0-75.0) Lymphocytes (%) (Auto) 33.0 % (20.0-45.0) Monocytes (%) (Auto) 9.8 % (1.0-10.0) Eosinophils (%) (Auto) 2.6 % (0.0-3.0) Basophils (%) (Auto) 1.4 % (0.0-2.0) Chemistry Test 10/22/19 08:20 Sodium Level 138 MMOL/L (136-145) Potassium Level 4.5 MMOL/L (3.5-5.1) Chloride Level 102 MMOL/L (98-107) Carbon Dioxide Level 30 MMOL/L (21-32) Anion Gap 7 mmol/L (5-15) Blood Urea Nitrogen 40 mg/dL (7-18) H Creatinine 1.9 MG/DL (0.55-1.30) H Estimat Glomerular Filtration Rate 32.0 mL/min (>60) Glucose Level 123 MG/DL (74-106) H Calcium Level 9.3 MG/DL (8.5-10.1) Total Bilirubin 0.5 MG/DL (0.2-1.0) Aspartate Amino Transf (AST/SGOT) 15 U/L (15-37) Alanine Aminotransferase (ALT/SGPT) 22 U/L (12-78) Alkaline Phosphatase 39 U/L (46-116) L Total Protein 7.5 G/DL (6.4-8.2) Albumin 4.1 G/DL (3.4-5.0) Globulin 3.4 g/dL Albumin/Globulin Ratio 1.2 (1.0-2.7) Studies Pre-op Studies: EKG - SR Risk Assessment & Plan Assessment: denies changes in health last two weeks Plan: MAC Status Change Before Surgery: No Pre-Antibiotics Drug: none Evelyn Villegas CRNA Oct 22, 2019 09:48
--- NOTE | 2019-10-22 11:21 | Immediate Post-Op Evaluation ---
Immediate Post-Op Evalulation Immediate Post-Op Evalulation Procedure: EGD with Bx Date of Evaluation: Oct 22, 2019 Time of Evaluation: 09:10 IV Fluids: 500 Blood Pressure Systolic: 116 Blood Pressure Diastolic: 84 Pulse Rate: 71 Respiratory Rate: 14 O2 Sat by Pulse Oximetry: 99 Temperature (Fahrenheit): 97.5 Nausea: No Vomiting: No Complications none Patient Status: awake, reacts, patent Hydration Status: adequate Drug: none Evelyn Villegas CRNA Oct 22, 2019 11:21
--- NOTE | 2019-10-22 14:30 | Procedure Note ---
DATE OF PROCEDURE: 10/22/2019 SURGEON: Pelon Calloway M.D. PROCEDURE: Upper endoscopy with biopsy. ANESTHESIA: Per DENISE, Evelyn Villegas. INSTRUMENT: Olympus adult flexible upper endoscope. INDICATION: Abdominal pain, dysphagia, GERD. REASON FOR PROCEDURE: The procedure, risks, benefits, and possible consequences, including hemorrhage, aspiration, perforation and infection, and alternative treatments, were explained to the patient/legal guardian by Dr. Pelon Calloway and the patient/legal guardian understood and accepted these risks. DESCRIPTION OF PROCEDURE: After informed consent was obtained and the patient was adequately sedated, Olympus upper endoscope was advanced from mouth into the second portion of the duodenum and retroflexion was performed in the stomach. In the prepyloric region and in the antrum of the stomach, the patient had multiple nodules. These nodules are actually looking to be large size between 8 mm to 1 to 1.2 cm in size. Few of these nodules were biopsied for diagnosis. They are polyp looking. If the biopsies come back as a polyp, then this needs to be removed in another endoscopy. The patient had some mild atrophic gastritis. In mid esophagus, there were multiple shallow ulcerations of unknown . Biopsy from these ulcers were obtained. The patient tolerated the procedure without any complication. SUMMARY OF FINDINGS: 1. Multiple antral nodules, status post biopsy. 2. Mild atrophic gastritis. 3. Multiple shallow ulcerations in the mid esophagus, status post biopsy. RECOMMENDATIONS: Follow up biopsy results and treat accordingly. Pelon Calloway M.D. DR: LAURIE JOB#: [id number] CC:
--- NOTE | 2019-10-22 15:08 | 48 Hour Post Anesthesia Eval ---
Post Anesthesia Evaluation Procedure: EGD with Bx Date of Evaluation: Oct 22, 2019 Time of Evaluation: 15:07 Blood Pressure Systolic: 138 0: 78 Pulse Rate: 74 Respiratory Rate: 14 O2 Sat by Pulse Oximetry: 98 Airway: patent Nausea: No Vomiting: No Hydration Status: adequate Cardiopulmonary Status: stable Mental Status/LOC: patient returned to baseline Post-Anesthesia Complications: none Follow-up care needed: N/A Evelyn Villegas CRNA Oct 22, 2019 15:08
--- NOTE | 2019-10-23 13:44 | Cardiology Report ---
APPROVED REPORT EKG Measurement Heart [id number] <Conclusion> Normal sinus rhythm Minimal voltage criteria for LVH, may be normal variant T wave abnormality, consider lateral ischemia Abnormal ECG
== END 2019-10-22 10:20 | disposition home or self-care (01) ==
LOC: GAS 07:06
DX: R10.9 Unspecified abdominal pain (principal); R13.10 Dysphagia, unspecified; K21.9 Gastro-esophageal reflux disease without esophagitis; K29.70 Gastritis, unspecified, without bleeding; Z88.0 Allergy status to penicillin; Z88.6 Allergy status to analgesic agent; Z79.899 Other long term (current) drug therapy; I11.0 Hypertensive heart disease with heart failure; J44.9 Chronic obstructive pulmonary disease, unspecified; Z94.2 Lung transplant status; E66.9 Obesity, unspecified; Z68.29 Body mass index [BMI] 29.0-29.9, adult
CPT/HCPCS: 36415; 43239; 80053; 85025; 93005; J2704; J7120; 94003; 94150

== ENCOUNTER 2020-07-19 12:01 | Outpatient (CLI) | payer MEDICARE, MEDICAID ==
[2020-07-19] MEDS ORDERED: FAMOTIDINE20 MG ORAL (12:34)
[2020-07-19 12:50] VITALS: BP 117/82
--- NOTE | 2020-07-19 13:38 | General Progress Note ---
Assessment/Plan Assessment/Plan: Problem List: (1) History of lung transplant ICD Codes: Z94.2 - Lung transplant status SNOMED: 98342449, 909365827 (2) Hepatitis C ICD Codes: B19.20 - Hepatitis C SNOMED: 62524290 (3) Pulmonary hypertension ICD Codes: I27.0 - Pulmonary hypertension SNOMED: 59334570 (4) COPD exacerbation (5) Esophageal candidiasis ICD Codes: B37.81 - Candidal esophagitis SNOMED: 11544309 Assessment/Plan: SUMMARY OF FINDINGS: 1. Multiple antral nodules, status post biopsy. 2. Mild atrophic gastritis. 3. Multiple shallow ulcerations in the mid esophagus, status post biopsy recurrent dionna treat with oral fluconazole RTC prn Subjective ROS Limited/Unobtainable: Yes Allergies: Coded Allergies: PENICILLINS (Verified Allergy, Severe, Rash, 04/02/14) and swelling ASPIRIN (Unverified Allergy, Unknown, 04/02/14) was told it makes her pulmonary infections worse Objective Last 24 Hour Vital Signs Date Time Temp Pulse Resp B/P (MAP) Pulse Ox O2 Delivery O2 Flow Rate FiO2 07/19/20 12:50 97.6 70 16 117/82 (94) 96 General Appearance: alert EENT: normal ENT inspection Neck: supple Cardiovascular: normal rate Respiratory/Chest: decreased breath sounds Abdomen: normal bowel sounds, non tender, soft Extremities: non-tender Pelon Calloway MD Jul 19, 2020 13:38
== END 2020-07-19 14:01 | disposition home or self-care (01) ==
LOC: PAN 12:01
DX: B19.20 Unspecified viral hepatitis C without hepatic coma (principal); Z94.2 Lung transplant status; I27.0 Primary pulmonary hypertension; J44.1 Chronic obstructive pulmonary disease with (acute) exacerbation; B37.81 Candidal esophagitis; K29.70 Gastritis, unspecified, without bleeding; Z88.6 Allergy status to analgesic agent; Z88.0 Allergy status to penicillin
CPT/HCPCS: 99212

== ENCOUNTER 2020-09-18 12:10 | Outpatient (CLI) | payer MEDICARE, MEDICAID ==
[~2020-09-18 12:10] MED LIST changes: +FAMOTIDINE20 MG ORAL
--- NOTE | 2020-09-18 15:20 | General Progress Note ---
Subjective ROS Limited/Unobtainable: Yes Allergies: Coded Allergies: PENICILLINS (Verified Allergy, Severe, Rash, 04/02/14) and swelling ASPIRIN (Unverified Allergy, Unknown, 04/02/14) was told it makes her pulmonary infections worse Objective General Appearance: alert EENT: normal ENT inspection Neck: supple Cardiovascular: normal rate Respiratory/Chest: decreased breath sounds Abdomen: normal bowel sounds, non tender, soft Extremities: non-tender Assessment/Plan Assessment/Plan: Problem List: (1) History of lung transplant ICD Codes: Z94.2 - Lung transplant status SNOMED: 78162641, 214883292 (2) Hepatitis C ICD Codes: B19.20 - Hepatitis C SNOMED: 94816771 (3) Pulmonary hypertension ICD Codes: I27.0 - Pulmonary hypertension SNOMED: 23129755 (4) COPD exacerbation (5) Esophageal candidiasis ICD Codes: B37.81 - Candidal esophagitis SNOMED: 83071313 Assessment/Plan: SUMMARY OF FINDINGS: 1. Multiple antral nodules, status post biopsy. 2. Mild atrophic gastritis. 3. Multiple shallow ulcerations in the mid esophagus, status post biopsy recurrent dionna treat with oral fluconazole RTC prn Pelon Calloway MD Sep 18, 2020 15:20
== END 2020-09-18 14:10 | disposition home or self-care (01) ==
LOC: PAN 12:10
DX: B19.20 Unspecified viral hepatitis C without hepatic coma (principal); I27.0 Primary pulmonary hypertension; Z94.2 Lung transplant status; J44.1 Chronic obstructive pulmonary disease with (acute) exacerbation; B37.81 Candidal esophagitis; Z88.6 Allergy status to analgesic agent; K29.40 Chronic atrophic gastritis without bleeding; Z88.0 Allergy status to penicillin; K22.10 Ulcer of esophagus without bleeding
CPT/HCPCS: 99212